=== PATIENT | male | born 1980 | race African-American/Black ===

== ENCOUNTER 2022-09-25 11:43 | Emergency (ER) | payer OTHER ==
[2022-09-25 12:00] VITALS: BP 123/78; PULSE 97; RESP 17; TEMP 98.3; BMI 24.2
[2022-09-25] MEDS ORDERED: DIPHTH,PERTUSS(ACELL),TET 0.5 ML DISP.SYRIN IM ONE ×2 (12:32→13:31)
[2022-09-25 12:47] LABS: HEMATOCRIT 29.7 % (35.4-49); HEMOGLOBIN 9.5 GM/dL (11.7-16.9); MCH 26.7 pg (25.7-33.7); MEAN CELL VOLUME 83.6 fl (80-96); MEAN PLT VOLUME 8.5 fl (7.5-11.1); PLATELET COUNT 373 10^3/uL (134-434); RBC 3.55 M/mm3 (4.00-5.60); RDW 18.2 % (11.9-15.9); WHITE BLOOD COUNT 12.3 K/mm3 (4.0-10.0)
[2022-09-25 13:15] LABS: CALCIUM 8.2 mg/dL (8.5-10.1)
[2022-09-25 13:16] LABS: ALBUMIN 1.8 g/dl (3.4-5.0); BLOOD UREA NITROGEN 65.8 mg/dL (7-18)
[2022-09-25 13:20] LABS: BILIRUBIN,TOTAL 0.4 mg/dL (0.2-1)
[2022-09-25 13:21] LABS: TOT PROT 6.2 g/dl (6.4-8.2)
[2022-09-25] MEDS ORDERED: SODIUM CHLORIDE 0.45% 1,000 ML IV SCH (14:45)
== END 2022-09-26 02:26 | disposition home or self-care (01) ==
LOC: JER 11:43
PROC: 3E0234Z Introduction of Serum, Toxoid and Vaccine into Muscle, Percutaneous Approach (ICD-10-PCS; principal; 2022-09-25)
DX: S01.111A Laceration without foreign body of right eyelid and periocular area, initial encounter (principal); R41.82 Altered mental status, unspecified; W18.30XA Fall on same level, unspecified, initial encounter; Z20.822 Contact with and (suspected) exposure to COVID-19
CPT/HCPCS: 0241U-QW; 36415; 70450-TC; 70486-TC; 71045-TC-FY; 72125-TC; 80053; 82550; 82962; 83605; 83735; 84484; 85027; 87040; 90471; 90715; 93005; 93010; 99285-25